=== PATIENT | male | born 1950 | race Caucasian/White ===

== ENCOUNTER 2017-12-05 08:05 | Emergency (ER) | payer MEDICARE, OTHER ==
[~2017-12-05 08:05] MED LIST: ALLO100T PO; ASPI-555 PO; CANA300T PO; CARV25TA PO; FURO40TA5 PO; INSLAN SQ; METF10004 PO; OMEG1CAP6 PO; POTA10CA44 PO; PRAV40TA3 PO; PREG75 PO; SODI650T PO; VIT1TABL75 PO
[2017-12-05 08:38] LABS: EOSINOPHILS % (AUTO) 1.5 % (0.0-8.0); HEMATOCRIT 30.3 % (42-54); LYMPHOCYTES % (AUTO) 19.7 % (21.0-51.0); MEAN CORPUSCULAR HEMOGLOBIN 27.8 pg (27.0-33.0); MEAN CORPUSCULAR VOLUME 84.3 fL (79-99); MONOCYTES % (AUTO) 6.4 % (3.0-13.0); NEUTROPHILS % (AUTO) 71.4 % (40.0-77.0); PLATELET COUNT (AUTO) 197 K/uL (130-400); RED BLOOD CELL COUNT(AUTO) 3.59 MIL/uL (4.50-6.20); RED CELL DISTRIBUTION WIDTH 15.4 % (11.0-15.5); WHITE BLOOD COUNT (AUTO) 5.2 K/uL (4.8-10.8)
[2017-12-05 08:46] LABS: CREATININE 1.8 mg/dL (0.5-1.5); POTASSIUM 3.8 mmol/L (3.5-5.1)
[2017-12-05 08:52] LABS: INR 1.02 (0.85-1.15); PARTIAL THROMBOPLASTIN TIME 26.7 SEC (26.3-35.5); PROTHROMBIN TIME 10.7 SEC (9.6-11.6)
[2017-12-05 08:59] LABS: ALBUMIN 3.6 g/dL (3.5-5.0); CREATINE KINASE MB 1.6 ng/mL (0.5-3.6); TOTAL PROTEIN, SERUM 6.6 g/dL (6.0-8.3)
[2017-12-05] MEDS ORDERED: ASPIRIN 81MG TAB.CHEW ONE (09:51)
[2017-12-05] MEDS ORDERED: FUROSEMIDE 10 MG/ML 2ML VIAL ONE ×2 (09:51→10:58)
[2017-12-05 10:18] LABS: ABG BASE EXCESS 1.4 mmol/L (-2.0-3.0); ABG HCO3 24.7 mmol/L (21.0-28.0); ABG OXYGEN SATURATION 97.1 % (95.0-99.0); ABG PCO2 35 mmHg (35-48)
== END 2017-12-05 11:10 | disposition home or self-care (01) ==
LOC: EDH 08:05
DX: R06.00 Dyspnea, unspecified (principal); I13.0 Hypertensive heart and chronic kidney disease with heart failure and stage 1 through stage 4 chronic kidney disease, or unspecified chronic kidney disease; E11.22 Type 2 diabetes mellitus with diabetic chronic kidney disease; N18.9 Chronic kidney disease, unspecified; I50.20 Unspecified systolic (congestive) heart failure; E78.5 Hyperlipidemia, unspecified; I25.10 Atherosclerotic heart disease of native coronary artery without angina pectoris; Z98.890 Other specified postprocedural states
CPT/HCPCS: 36415; 36600; 71045; 80053; 82550; 82553; 82803; 83880; 84484; 85025; 85610; 85730; 93005; 96374; 96376; 99285; J1940 ×2

== ENCOUNTER → 2017-12-09 | Outpatient (CLI) | payer OTHER | LOC: RAH 08:07 | PROVIDERS: ATTEND Family Medicine | DX: I26.99 Other pulmonary embolism without acute cor pulmonale (principal); R06.02 Shortness of breath | CPT/HCPCS: 71045; 78582; A9540; A9558 ==

== ENCOUNTER → 2017-12-10 | Outpatient (CLI) | payer OTHER | END | disposition home or self-care (01) | LOC: RAH 13:15 | PROVIDERS: ATTEND Family Medicine | DX: I26.99 Other pulmonary embolism without acute cor pulmonale (principal) | CPT/HCPCS: 93970 ==

== ENCOUNTER → 2018-01-28 | Outpatient (CLI) | payer OTHER ==
[~2018-01-28] MED LIST changes: +REGADENOSON 0.4 MG/5 ML PF SYG IVP SCH
== END | disposition home or self-care (01) ==
LOC: SHCH 10:08
PROVIDERS: ATTEND Internal Medicine Cardiovascular Disease
DX: I25.10 Atherosclerotic heart disease of native coronary artery without angina pectoris (principal)
CPT/HCPCS: 78452; 93017; 96374; A9500 ×2; J2785

== ENCOUNTER → 2018-03-09 | Outpatient (CLI) | payer OTHER ==
[~2018-03-09] MED LIST changes: -REGADENOSON 0.4 MG/5 ML PF SYG IVP SCH
== END | disposition home or self-care (01) ==
LOC: SHCH 15:09
PROVIDERS: ATTEND Internal Medicine Cardiovascular Disease
DX: I73.9 Peripheral vascular disease, unspecified (principal)
CPT/HCPCS: 93925

== ENCOUNTER 2018-05-26 07:10 | Emergency (ER) | payer OTHER ==
[~2018-05-26 07:10] MED LIST changes: +METF-446 PO; -METF10004 PO
[2018-05-26 07:47] LABS: BASOPHILS % (AUTO) 0.8 % (0.0-5.0); EOSINOPHILS % (AUTO) 1.7 % (0.0-8.0); LYMPHOCYTES % (AUTO) 12.2 % (21.0-51.0); MEAN CORPUSCULAR HEMOGLOBIN 33.2 pg (27.0-33.0); MEAN CORPUSCULAR HGB CONC 35.4 g/dL (32.0-36.0); MEAN CORPUSCULAR VOLUME 93.9 fL (79-99); MONOCYTES % (AUTO) 8.2 % (3.0-13.0); NEUTROPHILS % (AUTO) 77.1 % (40.0-77.0); PLATELET COUNT (AUTO) 197 K/uL (130-400); RED BLOOD CELL COUNT(AUTO) 3.83 MIL/uL (4.50-6.20); RED CELL DISTRIBUTION WIDTH 14.1 % (11.0-15.5); WHITE BLOOD COUNT (AUTO) 8.4 K/uL (4.8-10.8)
[2018-05-26 08:07] LABS: CREATININE 1.5 mg/dL (0.5-1.5); POTASSIUM 3.7 mmol/L (3.5-5.1)
[2018-05-26 08:10] LABS: ALBUMIN 3.7 g/dL (3.5-5.0); BILIRUBIN,TOTAL 1.1 mg/dL (0.2-1.0); TOTAL PROTEIN, SERUM 6.6 g/dL (6.0-8.3)
[2018-05-26] MEDS ORDERED: FUROSEMIDE 10 MG/ML 4ML VIAL ONE (10:48)
== END 2018-05-26 12:46 | disposition home or self-care (01) ==
LOC: EDH 07:10
DX: I20.8 Other forms of angina pectoris (principal); R06.00 Dyspnea, unspecified; I11.0 Hypertensive heart disease with heart failure; I50.9 Heart failure, unspecified; E11.9 Type 2 diabetes mellitus without complications; E78.5 Hyperlipidemia, unspecified; Z98.890 Other specified postprocedural states
CPT/HCPCS: 36415; 71045; 80053; 82550; 83880; 84484 ×2; 85025; 93005 ×2; 96374; 99285; J1940

== ENCOUNTER 2018-06-15 05:51 | Observation (INO) | payer OTHER ==
[2018-06-13 13:55] VITALS: BP 162/68
[2018-06-13 14:03] LABS: BASOPHILS % (AUTO) 1.3 % (0.0-5.0); EOSINOPHILS % (AUTO) 2.8 % (0.0-8.0); HEMATOCRIT 34.7 % (42-54); LYMPHOCYTES % (AUTO) 17.7 % (21.0-51.0); MEAN CORPUSCULAR HEMOGLOBIN 32.6 pg (27.0-33.0); MEAN CORPUSCULAR HGB CONC 34.8 g/dL (32.0-36.0); MEAN CORPUSCULAR VOLUME 93.8 fL (79-99); NEUTROPHILS % (AUTO) 71.2 % (40.0-77.0); PLATELET COUNT (AUTO) 198 K/uL (130-400); RED CELL DISTRIBUTION WIDTH 13.8 % (11.0-15.5); WHITE BLOOD COUNT (AUTO) 6.4 K/uL (4.8-10.8)
[2018-06-13 14:11] LABS: APPEARANCE,URINE Clear (CLEAR); BILIRUBIN,URINE Negative (NEGATIVE); COLOR,URINE Yellow (YELLOW); GLUCOSE, URINE (UA) >=1000 mg/dL (NEGATIVE); KETONES,URINE Negative (NEGATIVE); LEUKOCYTE ESTERASE ,URINE Negative (NEGATIVE); NITRATE,URINE Negative (NEGATIVE); OCCULT BLOOD,URINE Negative (NEGATIVE); PROTEIN,URINE Trace (NEGATIVE); UROBILINOGEN,URINE 0.2 mg/dL (0.2-1.0)
[2018-06-13 14:14] LABS: CREATININE 1.6 mg/dL (0.5-1.5); POTASSIUM 3.9 mmol/L (3.5-5.1)
[2018-06-13 14:15] LABS: INR 0.95 (0.85-1.15); PARTIAL THROMBOPLASTIN TIME 29.1 SEC (26.3-35.5)
[2018-06-13 14:26] LABS: BACTERIA,URINE Rare /HPF (None Seen); RBC,URINE 0-1 /HPF (0-1); SQUAMOUS EPITHELIAL CELL,UR None Seen /HPF (0-2); WBC,URINE 0-1 /HPF (0-1)
[~2018-06-15] VITALS: Ht 182.9 cm; Wt 102.6 kg
[2018-06-15] VITALS (8 sets, daily range): BP systolic 130–179; BP diastolic 55–91
[~2018-06-15 05:51] MED LIST changes: -ALLO100T PO; +ALLO300T2 PO; +ASPI-1181 PO; -ASPI-555 PO; +BRIM5DRO OU; -CANA300T PO; +EZET10TA26 PO; +FINA5TAB41 PO; +HYDR-4154 PO; -INSLAN SQ; +INSU100I26 SQ; +LATA7.5D OU; -OMEG1CAP6 PO; -PRAV40TA3 PO; -PREG75 PO; +SODIUM CHLORIDE 0.9% 500ML 500 ML IV SCH
[2018-06-15] MEDS ORDERED: SODIUM CHLORIDE 0.9% 1000ML 1,000 ML IV ONE (07:28)
[2018-06-15] MEDS ORDERED: LIDOCAINE HCL-MPF 2% 5ML VIAL ONE (12:10)
[2018-06-15] MEDS ORDERED: NITROGLYCERIN 5 MG/ML 10 ML VIAL IV ONE (12:11)
[2018-06-15] MEDS ORDERED: IOHEXOL 350 MG/ML 100ML INFUS..BTL IV ONE ×2 (12:11→13:22)
[2018-06-15] MEDS ORDERED: IOHEXOL-350 50ML VIAL IV ONE ×2 (12:11→13:23)
[2018-06-15] MEDS ORDERED: BIVALIRUDIN 250 MG/VIAL IV ONE (13:28)
[2018-06-15] MEDS ORDERED: ASPIRIN 325MG EC TAB 325 MG TABLET.DR PO ONE (13:33)
[2018-06-15] MEDS ORDERED: PRASUGREL HCL 10 MG TABLET ONE (13:33)
[2018-06-15] MEDS ORDERED: SODIUM CHLORIDE 0.9% 1000ML 1,000 ML IV SCH (14:29)
[2018-06-15] MEDS ORDERED: ONDANSETRON HCL 4 MG/2 ML VIAL IVP PRN (14:30)
[2018-06-15] MEDS ORDERED: GLUCAGON 1MG KIT 1 MG ML IM PRN (14:30)
[2018-06-15] MEDS ORDERED: DEXTROSE 50%-WATER 50 ML DISP.SYRIN IV PRN (14:30)
[2018-06-15] MEDS ORDERED: ACETAMINOPHEN-CODEINE 300/30MG TAB PO PRN ×2 (14:30)
[2018-06-15] MEDS ORDERED: PRASUGREL HCL 10 MG TABLET PO SCH (14:30)
[2018-06-15] MEDS: INSULIN HUMULIN R 100 UNIT/ML 3ML SQ SCH ×2 (16:30→21:36)
[2018-06-15 17:23] LABS: TROPONIN I 0.07 ng/mL (0.00-0.06)
[2018-06-15] MEDS: HYDRALAZINE HCL 25 MG TABLET PO SCH (20:55)
[2018-06-15] MEDS: CARVEDILOL 25 MG TABLET PO SCH (20:56)
[2018-06-15] MEDS: SODIUM BICARBONATE 650 MG TAB PO SCH (20:56)
[2018-06-15] MEDS ORDERED: BRIMONIDINE TARTRATE OU SCH (21:00)
[2018-06-15] MEDS ORDERED: LATANOPROST 2.5 ML DROPS OU SCH (21:00)
[2018-06-15] MEDS ORDERED: TIMOLOL OU SCH (21:00)
[2018-06-16 03:57] LABS: HEMATOCRIT 36.3 % (42-54); MEAN CORPUSCULAR HEMOGLOBIN 31.3 pg (27.0-33.0); MEAN CORPUSCULAR HGB CONC 33.8 g/dL (32.0-36.0); MEAN CORPUSCULAR VOLUME 92.6 fL (79-99); PLATELET COUNT (AUTO) 191 K/uL (130-400); RED BLOOD CELL COUNT(AUTO) 3.92 MIL/uL (4.50-6.20); RED CELL DISTRIBUTION WIDTH 13.8 % (11.0-15.5); WHITE BLOOD COUNT (AUTO) 6.9 K/uL (4.8-10.8)
[2018-06-16 03:59] VITALS: BP 172/87
[2018-06-16 04:20] LABS: CREATININE 1.6 mg/dL (0.5-1.5); POTASSIUM 3.5 mmol/L (3.5-5.1); TROPONIN I 0.3 ng/mL (0.00-0.06)
[2018-06-16] MEDS: INSULIN HUMULIN R 100 UNIT/ML 3ML SQ SCH (06:31)
[2018-06-16 07:00] VITALS: BP 160/70
[2018-06-16 08:48] VITALS: BP 160/74
[2018-06-16] MEDS: CARVEDILOL 25 MG TABLET PO SCH (08:48)
[2018-06-16] MEDS: HYDRALAZINE HCL 25 MG TABLET PO SCH (08:48)
[2018-06-16] MEDS: SODIUM BICARBONATE 650 MG TAB PO SCH (08:49)
[2018-06-16] MEDS ORDERED: ASPIRIN 81 MG EC TAB PO SCH (09:00)
[2018-06-16] MEDS ORDERED: BIOTIN PO SCH (09:00)
[2018-06-16] MEDS ORDERED: VIT B CMPLX PO SCH (09:00)
[2018-06-16] MEDS ORDERED: POTASSIUM CHLORIDE 10 MEQ/TAB.SA PO SCH (09:00)
[2018-06-16] MEDS ORDERED: PRASUGREL HCL 10 MG TABLET PO SCH (09:00)
[2018-06-16] MEDS ORDERED: ALLOPURINOL 300 MG TABLET PO SCH (09:00)
[2018-06-16] MEDS ORDERED: INSULIN GLARGINE 100 UNITS/ML 10 ML VIAL SQ SCH (09:00)
[2018-06-16] MEDS ORDERED: EZETIMIBE 10 MG TAB PO SCH (09:00)
[2018-06-16] MEDS ORDERED: [UNRECOGNIZED DRUG - OTHER] PO SCH (09:00)
[2018-06-16] MEDS ORDERED: FINASTERIDE 5 MG TABLET PO SCH (09:00)
== END 2018-06-16 11:04 | disposition home or self-care (01) ==
LOC: DAH 05:51 → DAHIP 05:52 → 2DH 15:22
PROVIDERS: ADMIT Internal Medicine Cardiovascular Disease; ATTEND Internal Medicine Cardiovascular Disease
DX: I13.0 Hypertensive heart and chronic kidney disease with heart failure and stage 1 through stage 4 chronic kidney disease, or unspecified chronic kidney disease (principal); I50.23 Acute on chronic systolic (congestive) heart failure; N18.3 Chronic kidney disease, stage 3 (moderate); D63.1 Anemia in chronic kidney disease; E11.22 Type 2 diabetes mellitus with diabetic chronic kidney disease; E78.5 Hyperlipidemia, unspecified; I25.10 Atherosclerotic heart disease of native coronary artery without angina pectoris; I42.0 Dilated cardiomyopathy; Z96.649 Presence of unspecified artificial hip joint
CPT/HCPCS: 36415 ×3; 71045; 80048 ×2; 80061; 81001; 82550 ×2; 82948 ×5; 83874 ×2; 83880; 84484 ×2; 85025; 85027; 85610; 85730; 93005 ×3; 93458; 96372 ×2; A4606; C1760; C1769; C1874; C1887; C1894; C9600; G0378 ×29; J0583; J1644; J1815; J3490 ×2; J7030; Q9965; Q9967 ×4

== ENCOUNTER → 2019-12-11 | Outpatient (CLI) | payer OTHER ==
[~2019-12-11] MED LIST changes: -EZET10TA26 PO; +EZET10TA48 PO; -SODIUM CHLORIDE 0.9% 500ML 500 ML IV SCH
== END | disposition home or self-care (01) ==
LOC: RAH 09:30
PROVIDERS: ATTEND Dermatology
DX: C4A.31 Merkel cell carcinoma of nose (principal)
CPT/HCPCS: 71046

== ENCOUNTER → 2020-09-18 | Outpatient (CLI) | payer MEDICARE ==
[~2020-09-18] MED LIST changes: -ASPI-1181 PO; +ASPI-1443 PO
== END | disposition home or self-care (01) ==
LOC: SHCH 13:02
PROVIDERS: ATTEND Internal Medicine Cardiovascular Disease
DX: R01.1 Cardiac murmur, unspecified (principal)
CPT/HCPCS: 93306; 93356

== ENCOUNTER → 2021-07-22 | Outpatient (CLI) | payer MEDICARE ==
[~2021-07-22] MED LIST changes: +ISOS60TA77 PO; +SPIR25TA6 PO
[2021-07-22] MEDS: REGADENOSON 0.4 MG/5 ML PF SYG IVP SCH (12:27)
== END | disposition home or self-care (01) ==
LOC: SHCH 08:11
PROVIDERS: ATTEND Internal Medicine Cardiovascular Disease
DX: I25.119 Atherosclerotic heart disease of native coronary artery with unspecified angina pectoris (principal); I51.7 Cardiomegaly
CPT/HCPCS: 78452; 93017; 96374; A9500 ×2; J2785

== ENCOUNTER → 2021-08-12 | Outpatient (CLI) | payer MEDICARE | END | disposition home or self-care (01) | LOC: RAH 15:04 | PROVIDERS: ATTEND Internal Medicine Cardiovascular Disease | DX: I08.8 Other rheumatic multiple valve diseases (principal) | CPT/HCPCS: 93306; 93356 ==

== ENCOUNTER → 2021-08-14 | Outpatient (CLI) | payer MEDICARE ==
[~2021-08-14] VITALS: Ht 180.3 cm; Wt 90.9 kg
[~2021-08-14] MED LIST changes: +0.9%NACL 1000ML 1,000 ML IV SCH
[2021-08-14 12:29] LABS: BASOPHILS % (AUTO) 0.8 % (0.0-5.0); EOSINOPHILS % (AUTO) 2.3 % (0.0-8.0); HEMATOCRIT 32.9 % (42-54); LYMPHOCYTES % (AUTO) 11.2 % (21.0-51.0); MEAN CORPUSCULAR HGB CONC 32.5 g/dL (32.0-36.0); MEAN CORPUSCULAR VOLUME 95.4 fL (79-99); MONOCYTES % (AUTO) 9.7 % (3.0-13.0); NEUTROPHILS % (AUTO) 75.6 % (40.0-77.0); PLATELET COUNT (AUTO) 239 K/uL (130-400); RED BLOOD CELL COUNT(AUTO) 3.45 MIL/uL (4.50-6.20); RED CELL DISTRIBUTION WIDTH 15.7 % (11.0-15.5); WHITE BLOOD COUNT (AUTO) 8.4 K/uL (4.8-10.8)
[2021-08-14 12:37] LABS: CREATININE 3.2 mg/dL (0.5-1.5); POTASSIUM 4.3 mmol/L (3.5-5.1)
[2021-08-14 12:40] LABS: INR 1.03 (0.85-1.15); PROTHROMBIN TIME 11.2 SEC (9.6-11.6)
[2021-08-14 12:41] LABS: PARTIAL THROMBOPLASTIN TIME 27.2 SEC (26.3-35.5)
[2021-08-14 12:43] LABS: APPEARANCE,URINE Clear (CLEAR); BILIRUBIN,URINE Negative (NEGATIVE); COLOR,URINE Yellow (YELLOW); GLUCOSE, URINE (UA) Negative (NEGATIVE); KETONES,URINE Negative (NEGATIVE); LEUKOCYTE ESTERASE ,URINE Negative (NEGATIVE); NITRATE,URINE Negative (NEGATIVE); OCCULT BLOOD,URINE Negative (NEGATIVE); PH,URINE 6.5 (5.0-8.0); PROTEIN,URINE Negative (NEGATIVE)
[2021-08-14 13:26] VITALS: BP 119/61
== END | disposition home or self-care (01) ==
LOC: DAH 10:00 → EDSTATUS 11:00
PROVIDERS: ATTEND Internal Medicine Cardiovascular Disease
DX: Z01.810 Encounter for preprocedural cardiovascular examination (principal); I35.2 Nonrheumatic aortic (valve) stenosis with insufficiency; I45.4 Nonspecific intraventricular block; R94.39 Abnormal result of other cardiovascular function study; Z88.6 Allergy status to analgesic agent; Z79.01 Long term (current) use of anticoagulants
CPT/HCPCS: 36415; 71045; 80048; 81003; 85025; 85610; 85730; 93005

== ENCOUNTER 2021-09-09 08:49 | Inpatient (IN) | payer MEDICARE ==
[~2021-09-09] VITALS: Ht 180.3 cm; Wt 92.2 kg
[~2021-09-09 08:49] MED LIST changes: -0.9%NACL 1000ML 1,000 ML IV SCH; -BRIM5DRO OU; -EZET10TA48 PO
[2021-09-09 10:17] LABS: BASOPHILS % (AUTO) 1.1 % (0.0-5.0); HEMATOCRIT 33.3 % (42-54); LYMPHOCYTES % (AUTO) 14.7 % (21.0-51.0); MEAN CORPUSCULAR HEMOGLOBIN 30.9 pg (27.0-33.0); MEAN CORPUSCULAR HGB CONC 32.1 g/dL (32.0-36.0); MEAN CORPUSCULAR VOLUME 96.2 fL (79-99); MONOCYTES % (AUTO) 9.1 % (3.0-13.0); NEUTROPHILS % (AUTO) 71.7 % (40.0-77.0); PLATELET COUNT (AUTO) 229 K/uL (130-400); RED BLOOD CELL COUNT(AUTO) 3.46 MIL/uL (4.50-6.20); RED CELL DISTRIBUTION WIDTH 15.7 % (11.0-15.5); WHITE BLOOD COUNT (AUTO) 7.3 K/uL (4.8-10.8)
[2021-09-09 10:31] LABS: % IRON SATURATION 24.2 % (30-44)
[2021-09-09 10:35] LABS: CREATININE 3.3 mg/dL (0.5-1.5); POTASSIUM 4.4 mmol/L (3.5-5.1)
[2021-09-09 10:40] LABS: ALBUMIN 3.9 g/dL (3.5-5.0); BILIRUBIN,TOTAL 0.8 mg/dL (0.2-1.0); TOTAL PROTEIN, SERUM 6.6 g/dL (6.0-8.3)
[2021-09-09 10:41] LABS: INR 1.01 (0.85-1.15)
[2021-09-09 10:42] LABS: PARTIAL THROMBOPLASTIN TIME 27.3 SEC (26.3-35.5)
[2021-09-09] MEDS ORDERED: ACETAMINOPHEN WITH CODEINE 1 TAB TAB PO PRN (11:30)
[2021-09-09] MEDS ORDERED: ACETAMINOPHEN 325 MG TAB PO PRN (12:00)
[2021-09-09] MEDS ORDERED: ONDANSETRON 4MG INJ IVP PRN (12:00)
[2021-09-09] MEDS: 0.9%NACL 1000ML 1,000 ML IV SCH (13:26)
[2021-09-09] MEDS: DOBUTAMINE HCL 1,000 MG in DEXTROSE 5%-WATER 250 ML IV SCH (14:28)
[2021-09-09 14:30] VITALS: BP 125/61
[2021-09-09 16:00] VITALS: BP 136/65
[2021-09-09] MEDS ORDERED: EZET10TA48 PO (17:06)
[2021-09-09] MEDS ORDERED: GLUCAGON 1MG KIT 1 MG ML IM PRN (17:30)
[2021-09-09] MEDS ORDERED: DEXTROSE 50%-WATER 50 ML DISP.SYRIN IV PRN (17:30)
[2021-09-09 19:21] VITALS: BP 148/71
[2021-09-09] MEDS: INSULIN HUMULIN R 100 UNIT/ML 3ML SQ SCH (20:34)
[2021-09-09] MEDS: HYDRALAZINE 25MG TABLET PO SCH (20:37)
[2021-09-09] MEDS: ACETYLCYSTEINE 600 MG CAPSULE PO SCH (20:37)
[2021-09-09] MEDS: CARVEDILOL 12.5 MG TABLET PO SCH (20:37)
[2021-09-09 23:17] VITALS: BP 137/68
[2021-09-10] MEDS: 0.9%NACL 1000ML 1,000 ML IV SCH ×2 (01:00→10:08)
[2021-09-10 03:21] VITALS: BP 151/80
[2021-09-10 04:38] LABS: EOSINOPHILS % (AUTO) 2.9 % (0.0-8.0); HEMATOCRIT 31.4 % (42-54); LYMPHOCYTES % (AUTO) 18.5 % (21.0-51.0); MEAN CORPUSCULAR HEMOGLOBIN 31.2 pg (27.0-33.0); MEAN CORPUSCULAR HGB CONC 32.8 g/dL (32.0-36.0); MEAN CORPUSCULAR VOLUME 95.2 fL (79-99); MONOCYTES % (AUTO) 9.7 % (3.0-13.0); NEUTROPHILS % (AUTO) 67.5 % (40.0-77.0); PLATELET COUNT (AUTO) 203 K/uL (130-400); RED CELL DISTRIBUTION WIDTH 15.9 % (11.0-15.5)
[2021-09-10 05:05] LABS: ALBUMIN 3.4 g/dL (3.5-5.0); BILIRUBIN,TOTAL 0.9 mg/dL (0.2-1.0); CREATININE 2.9 mg/dL (0.5-1.5); MAGNESIUM 2.6 mg/dL (1.80-2.40); PHOSPHORUS 3.5 mg/dL (2.5-4.9); POTASSIUM 3.6 mmol/L (3.5-5.1)
[2021-09-10 07:00] VITALS: BP 139/69
[2021-09-10] MEDS: INSULIN HUMULIN R 100 UNIT/ML 3ML SQ SCH ×4 (07:30→20:24)
[2021-09-10] MEDS: SPIRONOLACTONE 25 MG TAB PO SCH (08:30)
[2021-09-10] MEDS: ASPIRIN 81MG CHEW TAB PO SCH (08:30)
[2021-09-10] MEDS: HYDRALAZINE 25MG TABLET PO SCH ×2 (08:31→20:24)
[2021-09-10] MEDS: CARVEDILOL 12.5 MG TABLET PO SCH ×2 (08:31→20:24)
[2021-09-10] MEDS: FAMOTIDINE 20MG TAB PO SCH (08:32)
[2021-09-10] MEDS: ACETYLCYSTEINE 600 MG CAPSULE PO SCH ×2 (08:32→20:23)
[2021-09-10] MEDS: POTASSIUM CHLORIDE 10MEQ SR TAB PO SCH (08:32)
[2021-09-10] MEDS: EZETIMIBE 10 MG TAB PO SCH (08:32)
[2021-09-10] MEDS: ALLOPURINOL 300 MG TABLET PO SCH (08:32)
[2021-09-10] MEDS: ISOSORBIDE MONONITRATE 20 MG TABLET PO SCH (08:32)
[2021-09-10] MEDS ORDERED: ENOXAPARIN SODIUM 40 MG/0.4 ML SYRINGE SQ ONE (09:00)
[2021-09-10] MEDS ORDERED: FUROSEMIDE 40 MG TABLET PO SCH (09:00)
[2021-09-10 11:00] VITALS: BP 126/56
[2021-09-10 15:00] VITALS: BP 121/57
[2021-09-10 20:07] VITALS: BP 140/69
[2021-09-10 23:17] VITALS: BP 127/68
[2021-09-11] VITALS (12 sets, daily range): BP systolic 122–156; BP diastolic 61–75
[2021-09-11] MEDS ORDERED: DOBUTAMINE 250MG/D5 250ML 250 ML IV ONE (02:40)
[2021-09-11] MEDS: DOBUTAMINE HCL 1,000 MG in DEXTROSE 5%-WATER 250 ML IV SCH (02:56)
[2021-09-11] MEDS: 0.9%NACL 1000ML 1,000 ML IV SCH ×2 (03:30→16:29)
[2021-09-11 05:04] LABS: HEMATOCRIT 31.9 % (42-54); MEAN CORPUSCULAR HEMOGLOBIN 31.3 pg (27.0-33.0); MEAN CORPUSCULAR HGB CONC 31.7 g/dL (32.0-36.0); MEAN CORPUSCULAR VOLUME 98.8 fL (79-99); RED BLOOD CELL COUNT(AUTO) 3.23 MIL/uL (4.50-6.20); RED CELL DISTRIBUTION WIDTH 15.7 % (11.0-15.5); WHITE BLOOD COUNT (AUTO) 6.6 K/uL (4.8-10.8)
[2021-09-11 05:17] LABS: CREATININE 3.1 mg/dL (0.5-1.5); INR 1.09 (0.85-1.15); POTASSIUM 3.8 mmol/L (3.5-5.1); PROTHROMBIN TIME 11.8 SEC (9.6-11.6)
[2021-09-11] MEDS: INSULIN HUMULIN R 100 UNIT/ML 3ML SQ SCH ×4 (06:17→20:47)
[2021-09-11] MEDS ORDERED: NITROGLYCERIN 2 MG VIAL IV ONE (08:41)
[2021-09-11] MEDS ORDERED: LIDOCAINE HCL 400MG/20ML VIAL ONE ×2 (08:41→09:18)
[2021-09-11] MEDS ORDERED: FENTANYL CITRATE PF 50 MCG/1 ML 2ML VIAL ONE (08:41)
[2021-09-11] MEDS ORDERED: IOHEXOL 350 MG/ML 100ML INFUS..BTL IV ONE (08:41)
[2021-09-11] MEDS ORDERED: HEPARIN 10,000 UNIT/10ML (1,000 UNIT/ML) VIAL ONE (08:41)
[2021-09-11] MEDS ORDERED: MIDAZOLAM HCL 1 MG/ML 2ML VIAL ONE (08:41)
[2021-09-11] MEDS: ISOSORBIDE MONONITRATE 20 MG TABLET PO SCH (09:00)
[2021-09-11] MEDS: ALLOPURINOL 300 MG TABLET PO SCH (09:00)
[2021-09-11] MEDS: POTASSIUM CHLORIDE 10MEQ SR TAB PO SCH (09:00)
[2021-09-11] MEDS: ASPIRIN 81MG CHEW TAB PO SCH (09:00)
[2021-09-11] MEDS: EZETIMIBE 10 MG TAB PO SCH (09:00)
[2021-09-11] MEDS: ACETYLCYSTEINE 600 MG CAPSULE PO SCH (09:00)
[2021-09-11] MEDS: CARVEDILOL 12.5 MG TABLET PO SCH ×2 (09:00→20:32)
[2021-09-11] MEDS: HYDRALAZINE 25MG TABLET PO SCH ×2 (09:00→20:32)
[2021-09-11] MEDS: SPIRONOLACTONE 25 MG TAB PO SCH (09:00)
[2021-09-11] MEDS: FAMOTIDINE 20MG TAB PO SCH (09:00)
[2021-09-12] VITALS (7 sets, daily range): BP systolic 103–138; BP diastolic 58–74
[2021-09-12 04:24] LABS: EOSINOPHILS % (AUTO) 2.9 % (0.0-8.0); HEMATOCRIT 30.2 % (42-54); LYMPHOCYTES % (AUTO) 13.4 % (21.0-51.0); MEAN CORPUSCULAR HGB CONC 32.5 g/dL (32.0-36.0); MEAN CORPUSCULAR VOLUME 95.6 fL (79-99); MONOCYTES % (AUTO) 12.1 % (3.0-13.0); NEUTROPHILS % (AUTO) 70.3 % (40.0-77.0); PLATELET COUNT (AUTO) 189 K/uL (130-400); RED BLOOD CELL COUNT(AUTO) 3.16 MIL/uL (4.50-6.20); RED CELL DISTRIBUTION WIDTH 15.7 % (11.0-15.5); WHITE BLOOD COUNT (AUTO) 6.2 K/uL (4.8-10.8)
[2021-09-12 05:00] LABS: CREATININE 2.8 mg/dL (0.5-1.5); POTASSIUM 3.7 mmol/L (3.5-5.1)
[2021-09-12] MEDS: 0.9%NACL 1000ML 1,000 ML IV SCH (06:10)
[2021-09-12] MEDS: INSULIN HUMULIN R 100 UNIT/ML 3ML SQ SCH ×2 (06:28→11:30)
[2021-09-12] MEDS: HYDRALAZINE 25MG TABLET PO SCH (09:00)
[2021-09-12] MEDS: CARVEDILOL 12.5 MG TABLET PO SCH (09:00)
[2021-09-12] MEDS: ISOSORBIDE MONONITRATE 20 MG TABLET PO SCH (09:00)
[2021-09-12] MEDS: EZETIMIBE 10 MG TAB PO SCH (09:27)
[2021-09-12] MEDS: ASPIRIN 81MG CHEW TAB PO SCH (09:27)
[2021-09-12] MEDS: POTASSIUM CHLORIDE 10MEQ SR TAB PO SCH (09:27)
[2021-09-12] MEDS: FAMOTIDINE 20MG TAB PO SCH (09:27)
[2021-09-12] MEDS: ALLOPURINOL 300 MG TABLET PO SCH (09:27)
[2021-09-12] MEDS: SPIRONOLACTONE 25 MG TAB PO SCH (09:27)
== END 2021-09-12 13:50 | disposition home or self-care (01) | DRG 287 ==
LOC: EDH 08:49 → EDHIP 08:50 → 2DH 14:53
PROVIDERS: ADMIT Internal Medicine; ATTEND Internal Medicine
PROC: 4A023N8 Measurement of Cardiac Sampling and Pressure, Bilateral, Percutaneous Approach (ICD-10-PCS; principal; 2021-09-11)
PROC: B2111ZZ Fluoroscopy of Multiple Coronary Arteries using Low Osmolar Contrast (ICD-10-PCS; 2021-09-11)
DX: I08.0 Rheumatic disorders of both mitral and aortic valves (principal); N18.4 Chronic kidney disease, stage 4 (severe); I50.22 Chronic systolic (congestive) heart failure; I13.0 Hypertensive heart and chronic kidney disease with heart failure and stage 1 through stage 4 chronic kidney disease, or unspecified chronic kidney disease; I42.8 Other cardiomyopathies; I27.20 Pulmonary hypertension, unspecified; I25.10 Atherosclerotic heart disease of native coronary artery without angina pectoris; E11.22 Type 2 diabetes mellitus with diabetic chronic kidney disease; E78.5 Hyperlipidemia, unspecified; Z96.643 Presence of artificial hip joint, bilateral; Z95.2 Presence of prosthetic heart valve; Z95.5 Presence of coronary angioplasty implant and graft; Z83.3 Family history of diabetes mellitus; Z82.49 Family history of ischemic heart disease and other diseases of the circulatory system; Z83.6 Family history of other diseases of the respiratory system; Z82.0 Family history of epilepsy and other diseases of the nervous system
CPT/HCPCS: 36415; 71046; 80048; 80053; 80061; 82728; 82948; 83540; 83550; 83735; 84100; 85025; 85027; 85610; 85730; 93005; 93460; 93463; C1760; C1769; C1893; C1894; G0378; J1250; J1644; J1650; J1815; J2250; J3010; J3490; J7030; J7060; Q9967

== ENCOUNTER 2022-01-24 15:52 | Emergency (ER) | payer MEDICARE ==
[~2022-01-24] VITALS: Ht 180.3 cm; Wt 93.0 kg
[~2022-01-24 15:52] MED LIST changes: +EZET10TA48 PO; -METF-446 PO
[2022-01-24 16:31] LABS: BASOPHILS % (AUTO) 0.9 % (0.0-5.0); EOSINOPHILS % (AUTO) 2.4 % (0.0-8.0); HEMATOCRIT 32.2 % (42-54); LYMPHOCYTES % (AUTO) 11.9 % (21.0-51.0); MEAN CORPUSCULAR HEMOGLOBIN 32.4 pg (27.0-33.0); MEAN CORPUSCULAR HGB CONC 34.2 g/dL (32.0-36.0); MEAN CORPUSCULAR VOLUME 94.7 fL (79-99); MONOCYTES % (AUTO) 10.1 % (3.0-13.0); PLATELET COUNT (AUTO) 186 K/uL (130-400); RED CELL DISTRIBUTION WIDTH 13.8 % (11.0-15.5); WHITE BLOOD COUNT (AUTO) 7.7 K/uL (4.8-10.8)
[2022-01-24 17:00] LABS: ALBUMIN 3.8 g/dL (3.5-5.0); CREATININE 1.6 mg/dL (0.5-1.5); TOTAL PROTEIN, SERUM 6.3 g/dL (6.0-8.3)
[2022-01-24 17:17] LABS: POTASSIUM 2.8 mmol/L (3.5-5.1)
[2022-01-24] MEDS ORDERED: POTASSIUM BICARB/CIT AC 25 MEQ TABLET.EFF PO ONE ×2 (17:30→18:30)
[2022-01-24 17:41] LABS: APPEARANCE,URINE Clear (CLEAR); BILIRUBIN,URINE Negative (NEGATIVE); COLOR,URINE Yellow (YELLOW); GLUCOSE, URINE (UA) Negative (NEGATIVE); KETONES,URINE Negative (NEGATIVE); LEUKOCYTE ESTERASE ,URINE Negative (NEGATIVE); NITRATE,URINE Negative (NEGATIVE); OCCULT BLOOD,URINE Negative (NEGATIVE); PROTEIN,URINE POS 2+ mg/dL (NEGATIVE); UROBILINOGEN,URINE 0.2 mg/dL (0.2-1.0)
[2022-01-24 18:09] LABS: BACTERIA,URINE None Seen /HPF (None Seen); RBC,URINE 0-1 /HPF (0-1); SQUAMOUS EPITHELIAL CELL,UR Rare /HPF (0-2); WBC,URINE 0-1 /HPF (0-1)
[2022-01-24] MEDS ORDERED: CLONIDINE HCL 0.1 MG TABLET ONE (18:21)
[2022-01-24] MEDS ORDERED: POTA-187 PO (18:21)
[2022-01-24 18:25] VITALS: BP 131/74
[2022-01-24] MEDS ORDERED: CLONIDINE HCL 0.1 MG TABLET PO ONE (18:30)
== END 2022-01-24 18:36 | disposition home or self-care (01) ==
LOC: EDH 15:52
DX: E10.649 Type 1 diabetes mellitus with hypoglycemia without coma (principal); E87.6 Hypokalemia; I10 Essential (primary) hypertension; E78.00 Pure hypercholesterolemia, unspecified; Z79.4 Long term (current) use of insulin; Z79.82 Long term (current) use of aspirin; Z79.899 Other long term (current) drug therapy
CPT/HCPCS: 36415; 80053; 81001; 82948; 84132; 85025

== ENCOUNTER → 2022-08-26 | Outpatient (CLI) | payer OTHER ==
[~2022-08-26] MED LIST changes: +POTA-187 PO; -POTA10CA44 PO; +POTA10CA45 PO
[2022-08-26 12:35] LABS: BASOPHILS % (AUTO) 0.9 % (0.0-5.0); EOSINOPHILS % (AUTO) 2.4 % (0.0-8.0); HEMATOCRIT 34.4 % (42-54); LYMPHOCYTES % (AUTO) 15.8 % (21.0-51.0); MEAN CORPUSCULAR HEMOGLOBIN 32.4 pg (27.0-33.0); MEAN CORPUSCULAR VOLUME 101.5 fL (79-99); MONOCYTES % (AUTO) 13.4 % (3.0-13.0); NEUTROPHILS % (AUTO) 67.3 % (40.0-77.0); PLATELET COUNT (AUTO) 170 K/uL (130-400); RED BLOOD CELL COUNT(AUTO) 3.39 MIL/uL (4.50-6.20); RED CELL DISTRIBUTION WIDTH 15.4 % (11.0-15.5); WHITE BLOOD COUNT (AUTO) 5.5 K/uL (4.8-10.8)
[2022-08-26 13:06] LABS: CREATININE 2.6 mg/dL (0.5-1.5); POTASSIUM 3.3 mmol/L (3.5-5.1); THYROID STIMULATING HORMONE 3.41 uIU/mL (0.36-3.74)
[2022-08-26 13:23] LABS: B-TYPE NATRIURETIC PEPTIDE 2450 pg/mL (0-100)
== END | disposition home or self-care (01) ==
LOC: LAB 08:17
PROVIDERS: ATTEND Internal Medicine Cardiovascular Disease
DX: I50.22 Chronic systolic (congestive) heart failure (principal); D50.9 Iron deficiency anemia, unspecified
CPT/HCPCS: 36415; 80048; 83880; 84443; 85025

== ENCOUNTER → 2022-11-18 | Outpatient (CLI) | payer OTHER | END | disposition home or self-care (01) | LOC: SHCH 08:49 | PROVIDERS: ATTEND Internal Medicine Cardiovascular Disease | DX: Z95.2 Presence of prosthetic heart valve (principal) | CPT/HCPCS: 93306 ==

== ENCOUNTER → 2023-08-17 | Outpatient (CLI) | payer OTHER ==
[~2023-08-17] MED LIST changes: -POTA10CA45 PO; +POTA10CA85 PO
[2023-08-17 16:51] LABS: ALBUMIN 3.5 g/dL (3.5-5.0); BILIRUBIN,TOTAL 0.6 mg/dL (0.2-1.0); CREATININE 2.9 mg/dL (0.5-1.5); POTASSIUM 3.7 mmol/L (3.5-5.1); TOTAL PROTEIN, SERUM 6.4 g/dL (6.0-8.3)
== END | disposition home or self-care (01) ==
LOC: LAB 14:55
PROVIDERS: ATTEND Internal Medicine Cardiovascular Disease
DX: I50.23 Acute on chronic systolic (congestive) heart failure (principal)
CPT/HCPCS: 36415; 80053; 83880

== ENCOUNTER → 2024-10-18 | Outpatient (CLI) | payer OTHER ==
[~2024-10-18] MED LIST changes: -HYDR-4154 PO; +HYDR50TA37 PO; -POTA10CA85 PO; +POTA10CA95 PO
--- NOTE | 2024-10-25 14:14 | HMCSR ---
APPROVED REPORT EXAM: Two-dimensional and M-mode echocardiogram with Doppler and color Doppler. INDICATION ICD: Z95.2 Presence of prosthetic heart valve I42 2D Dimensions RVDd5.2 cmLVEF(%)24.1 (>50%)LVED Vol(simp.)329.0 mL IVSd1.1 (0.7-1.1cm)FS(%)11 %LVES Vol(simp.)242.0 mL LVDd7.0 (3.8-5.6cm)IVC diam2.1 cmLVEF(%, simp.)27 % PWd1.4 (0.7-1.1cm)LA ESV INDEX (BP)73.20 mL/m2 LVDs6.2 (2.5-4.0cm) Aortic Valve AoV Vmax2.1 m/Bobby Peak GR17.7 mmHgLVOT Vmax0.9 m/s AoV VTI0.5 mAo Mean GR10.2 mmHgLVOT VTI0.22 m Al P1/2T662 ms Mitral Valve MV E Vmax95.9 cm/sDECEL Tcpm525 msMR TPO606 cm2 MV A Vmax81.7 cm/sP 1/2 T67 ms E/A ratio1.2MVA (PHT)3.3 cm2 MR Max PG130 mmHgMR Mean PG88 mmHg TDI E/E' Dioylr26.3E/E' Dpbhorm71.9 Pulmonary Valve PV Vmax1.2 m/sPV VTI0.27 mPV Mean GR3 mmHg PV Peak GR5.7 mmHgPI End Milli. Joselito 1.5 cm/s Tricuspid Valve TR Vmax3.5 m/sRAP (EST) 8 lnEzMIDQ58.1 mmHg TR Peak GR48.1 mmHg Left Ventricle The left ventricle is severely dilated with an LVIDd of 7.0 cm. Severe global hypokinesis. There is m ild to moderate left ventricular hypertrophy. LVEF is 25-30%. Grade 2 diastolic dysfunction. Right Ventricle The right ventricle is severely dilated. The right ventricular systolic function is normal. Atria The left atrium is severely dilated, with LA ESV index measuring 73 mL/m. The right atrium is severe ly dilated. Aortic Valve Medtronic CoreValve bioprosthetic aortic valve is present. Peak AV gradient 18 mmHg; mean AV gradient 10 mmHg; AV Vmax is 2.1 m/s appropriate for a bioprosthesis. Previously AV peak 16; mean 9; and Vmax 2.0 m/s on 11/18/2022. Trace to mild aortic perivalvular leak. AV Dimensionless Index is 0.47 Mitral Valve Mitral valve leaflets are mildly calcified. Mitral regurgitation is moderate. There is no mitral valv e stenosis. Tricuspid Valve The tricuspid valve leaflets appear normal. There is two jets of moderate tricuspid regurgitation. Ri ght ventricular systolic pressure is estimated at 56 mmHg. Pulmonic Valve The pulmonic valve leaflets are thin and pliable; valve motion is normal. There is mild to moderate v alvular regurgitation. Great Vessels The aortic root is not well visualized. IVC is dilated and collapses >50% with inspiration. Pericardium No pericardial effusion. Conclusion The left atrium is severely dilated, with LA ESV index measuring 73 mL/m. The left ventricle is severely dilated with an LVIDd of 7.0 cm. Severe global hypokinesis. LVEF is 25-30%. Grade 2 diastolic dysfunction. The right ventricle is severely dilated. Medtronic CoreValve bioprosthetic aortic valve is present. Peak AV gradient 18 mmHg; mean AV gradient 10 mmHg; AV Vmax is 2.1 m/s appropriate for a bioprosthesi s. Previously AV peak 16; mean 9; and Vmax 2.0 m/s on 11/18/2022. Trace to mild aortic perivalvular leak. Mitral regurgitation is moderate. There is two jets of moderate tricuspid regurgitation. Right ventricular systolic pressure is estimated at 56 mmHg. No pericardial effusion.
== END | disposition home or self-care (01) ==
LOC: SHCH 13:10
PROVIDERS: ATTEND Internal Medicine Cardiovascular Disease
DX: I08.8 Other rheumatic multiple valve diseases (principal); I42.9 Cardiomyopathy, unspecified; Z95.2 Presence of prosthetic heart valve; Z95.3 Presence of xenogenic heart valve
CPT/HCPCS: 93306